=== PATIENT | female | born 1995 | race African-American/Black ===

== ENCOUNTER 2020-10-22 15:06 | Emergency (ER) | payer OTHER ==
[2020-10-22 15:16] VITALS: BP 107/69; PULSE 75; TEMP 98; BMI 20.1
== END 2020-10-22 15:53 | disposition home or self-care (01) ==
LOC: JER 15:06 → JERFT 15:06
DX: H00.14 Chalazion left upper eyelid (principal)
CPT/HCPCS: 99283-25